=== PATIENT | female | born 1950 | race Asian ===

== ENCOUNTER → 2016-07-20 | Day surgery (SDC) | payer BC ==
[2016-07-20] VITALS (8 sets, daily range): BP systolic 134–157; BP diastolic 71–88
[~2016-07-20] VITALS: Ht 154.9 cm; Wt 72.6 kg
[~2016-07-20] MED LIST: ALLOPURINOL100 M1 ORAL; AMLODIPINE BESYL5 MG ORAL; ASPIRIN-LOW81 MG ORAL; BSS 15ml BTL ONE; BSS 500ml btl ONE; Bupivacaine 0.75% 30ml vial INJ ONE; Cyclopentolate 1% Opth Sol ONE; DIOVAN320 MG ORAL; Dexamethasone 4mg/ml vial ONE; DiphenhydrAMINE 50mg/ml Inj IVP PRN; EPINEPHrine 1mg/1ml Amp ONE; GABAPENTIN400 MG ORAL; Goniosol 2.5% Opth Soln - 15ml ONE; HUMALOG100 UNIT/1 SUBQ; Indocyanine Green 25mg Inj INJ ONE; KEPPRA500 M4 ORAL; Kenalog-10 5ml Inj ONE; Kenalog-40 1ml Vial ONE; LANTUS SOL100 UNIT/1 SUBQ; LIPITOR40 MG ORAL; LR 1000ml 1,000 ML IVLG SCH; LR 1000ml ONE; Lidocaine 2% MPF 5ml Vial INJ ONE; METFORMIN HCL1000 M1 ORAL; Maxitrol Opth Oint 3.5gm ONE; Midazolam 2mg/2ml Inj ONE; NS Irrig 1000ml ONE; Phenylephrine 2.5% Op Soln ONE; Povidone-Iodine 5% opth solution ONE; Pred Forte 1% Opth Susp 1ml ONE; Propofol 10mg/ml 20ml IV ONE; Sterile Water Irrig 1000ml IRRIG ONE; TOPROL XL25 MG ORAL; Tetracaine 0.5% Opth Soln ONE; Vancomycin 1gm inj IVPB ONE; fentaNYL 100 mcg/2 mL IV ONE; fentaNYL 100 mcg/2 mL IV PRN
[2016-07-20] MEDS: Cyclopentolate 1% Opth Sol LEFT EYE SCH ×3 (06:13→06:32)
[2016-07-20] MEDS: Phenylephrine 2.5% Op Soln LEFT EYE SCH ×3 (06:13→06:32)
--- NOTE | 2016-07-20 07:51 | Pre-Procedure Note/Attestation ---
Pre-Procedure Note/Attestation Complete Prior to Procedure Planned Procedure: left Procedure Narrative: ft os. b,a,r discussed Indications for Procedure Pre-Operative Diagnosis: vision loss OS Attestation I attest that I discussed the nature of the procedure; its benefits; risks and complications; and alternatives (and the risks and benefits of such alternatives ), prior to the procedure, with the patient (or the patient's legal wine sales representative). I attest that, if there was a reasonable possibility of needing a blood transfusion, the patient (or the patient's legal wine sales representative) was given the [facility] standardized written summary, pursuant to the Ari Carl Blood Safety Act ([place] Health and Safety Code # 1645, as amended). I attest that I re-evaluated the patient just prior to the surgery and that there has been no change in the patient's H&P, except as documented below: JESSICA JESSICA M.D. Jul 20, 2016 07:51
--- NOTE | 2016-07-20 08:25 | Anethesia Preoperative Eval ---
Anesthesia Pre-op PMH/ROS General Date of Evaluation: Jul 20, 2016 Time of Evaluation: 07:55 Anesthesiologist: Margarita ASA Score: ASA 3 Mallampati Score Class I : Soft palate, uvula, fauces, pillars visible Class II: Soft palate, uvula, fauces visible Class III: Soft palate, base of uvula visible Class IV: Only hard plate visible Mallampati Classification: Class III Surgeon: Ty Diagnosis: L eye diabetic retinopathy Surgical Procedure: L eye PPV membrane peel Anesthesia History: none Family History: no anesthesia problems Allergies: Coded Allergies: TRAMADOL (Verified Allergy, Unknown, 07/19/16) Medications: see eMAR Past Medical History Cardiovascular: Reports: HTN, arrhythmia - SA, Denies: CAD, NC, other, valve dz Pulmonary: Reports: RAYNE, Denies: COPD, asthma, other Gastrointestinal/Genitourinary: Reports: GERD, Denies: CRI, ESRD, other Neurologic/Psychiatric: Denies: CVA, TIA, dementia, depression/anxiety, other Endocrine: Reports: DM, Denies: hypothyroidism, other, steroids HEENT: Reports: cataract (L) - s/p Sx, Denies: [place] (L), [place] (R), cataract (R), glaucoma, other Hematology/Immune: Denies: DVT, anemia, bleeding disorder, other Musculoskeletal/Integumentary: Denies: DDD, DJD, OA, RA, edema, other Other: other - overweight PMH Narrative: as above PSxH Narrative: L eye cataract Craniotomy for brain tumor, cervical spine Sx. Anesthesia Pre-op Phys. Exam Physician Exam Last Vital Signs Date Time Temp Pulse Resp B/P Pulse Ox O2 Delivery O2 Flow Rate FiO2 07/20/16 06:42 97.7 52 20 139/73 98 Room Air Constitutional: NAD Neurologic: CN 2-12 intact Cardiovascular: RRR, no M/R/G Respiratory: CTA Gastrointestinal: S/NT/ND Airway Exam Mallampati Score: Class III MO: limited Neck: short ROM: limited Teeth: intact Dentures: no lower, no upper Anesthesia Pre-op A/P Labs see chart Accucheck 120 at admission Studies Pre-op Studies: EKG - SA Risk Assessment & Plan Assessment: ASA 3 Plan: MAC with retrobulbar block Status Change Before Surgery: No Pre-Antibiotics Drug: none JOANNA DONALDSON M.D. Jul 20, 2016 08:25
--- NOTE | 2016-07-20 09:08 | Immediate Post-Op Evaluation ---
Immediate Post-Op Evalulation Immediate Post-Op Evalulation Procedure: L eye PPV membrane peel fluid to gas exchange Date of Evaluation: Jul 20, 2016 Time of Evaluation: 09:07 IV Fluids: 200 Blood Products: none Estimated Blood Loss: min Urinary Output: none Blood Pressure Systolic: 147 Blood Pressure Diastolic: 68 Pulse Rate: 62 Respiratory Rate: 20 O2 Sat by Pulse Oximetry: 99 Temperature (Fahrenheit): 97.3 Pain Score (1-10): 1 Nausea: No Vomiting: No Complications none Patient Status: awake, patent, none Hydration Status: adequate JOANNA DONALDSON M.D. Jul 20, 2016 09:08
--- NOTE | 2016-07-20 09:10 | Operative Note - PDOC ---
Operative Note Operative Note Pre-op Diagnosis: vision loss OS Procedure: ppv/ilm peel/ afx/c3f8 os Post-op Diagnosis: macular hole os Post-op Diagnosis: same as pre-op Operative Findings: consistent w/pre-op dx studies Surgeon: araceli Masonry Teacher: none Anesthesia: local, MAC Specimen: none Complications: none Condition: stable Estimated Blood Loss: none Drains: none Implant(s) used?: No JESSICA JESSICA M.D. Jul 20, 2016 09:10
--- NOTE | 2016-07-20 09:19 | 48 Hour Post Anesthesia Eval ---
Post Anesthesia Evaluation Procedure: L eye PPV membrane peel fluid to gas exchange Date of Evaluation: Jul 20, 2016 Time of Evaluation: 09:18 Blood Pressure Systolic: 144 0: 72 Pulse Rate: 62 Respiratory Rate: 20 Temperature (Fahrenheit): 97.6 O2 Sat by Pulse Oximetry: 99 Airway: patent Nausea: No Vomiting: No Pain Intensity: 2 Hydration Status: adequate Cardiopulmonary Status: stable Mental Status/LOC: patient returned to baseline Follow-up Care/Observations: n/a Post-Anesthesia Complications: none Follow-up care needed: ready to discharge JOANNA DONALDSON M.D. Jul 20, 2016 09:19
--- NOTE | 2016-07-20 17:58 | Operative Note - Dictated ---
DATE OF OPERATION: 07/20/2016 PREOPERATIVE DIAGNOSIS: Macular hole, left eye. POSTOPERATIVE DIAGNOSIS: Macular hole, left eye. PROCEDURE: Pars plana vitrectomy, membrane peel, ILM peel, air fluid exchange, C3F8 gas left eye. PRIMARY SURGEON: Edil Crawford M.D. ORGANIZATIONAL CONSULTANT: None. ANESTHESIA: Monitored anesthesia care with retrobulbar injection. ESTIMATED BLOOD LOSS: None. COMPLICATIONS: None. INDICATIONS: The patient had a full thickness macular hole with vision loss in the left eye. After benefits, alternatives, and risks were discussed, an informed consent was signed. The patient specifically stated that she would be unable to perform face down positioning. I discussed with her that this may jeopardize the overall success rate of the procedure and that we would be using a long-acting gas to help mitigate these risks. The patient fully understood and is prepared to proceed. DESCRIPTION OF PROCEDURE: The patient was brought to the operating theatre and identified. The left eye received the retrobulbar block using the usual mixture of Marcaine and lidocaine under intervenous sedation with a retrobulbar needle. The left eye was then prepped and draped in the usual sterile fashion and a lid speculum was placed. Additional surgical pause was performed. A #23-gauge trocar/cannula was inserted in the inferotemporal quadrant at a distance of 3.5 mm posterior to limbus using conjunctival displacement in an oblique incision pattern. The infusion line was then attached to the cannula and observed to be in the posterior segment before being turned on. The supratemporal and supranasal cannulas were placed in a similar fashion. The Resight visualization system was brought into place and a light pipe and vitrectomy cutter were placed into the eye and appropriate focus obtained on the posterior pole where a macular hole was clearly visualized. Vitrectomy ensued in a systematic fashion starting with removal of core vitreous followed by peripheral vitreous shaving. Next, diluted ICG was placed on the posterior pole and allowed to remain for 20 seconds and was then washed out. Using a macular contact lens and a Danny oil heater installer, a small flap of ILM was lifted. Then using the ILM forceps, an ILM peel was performed. A 1-2 disk diameter margin around the macular hole was obtained. Next, using the Resight system, vitrectomy continued and any loose fragments were removed from the eye. A 360 degree scleral depressed exam was then performed and there was no evidence of retinal tears or detachment. Air fluid exchange was then performed and instruments removed from the eye. The supranasal cannula was removed and sclerotomy closed with 8-0 Vicryl. A 16% C3F8 gas was diluted and injected through the infusion line and allowed to escape through the supratemporal cannula, which had a vent. The remaining cannulas were removed and 8-0 Vicryl in a transconjunctival fashion was used to close the sclerotomy corresponding to the infusion lines, which appeared to be leaking. Conjunctival defect supranasal was then closed with 6-0 plain gut. Subconjunctival vancomycin and dexamethasone were then injected. Some additional gas was injected into the eye with a 30 gauge needle to bring the palpated pressure to approximately 15 to 20. The lid speculum and drape were removed. Ocular area cleaned. Atropine drop and Maxitrol ointment were placed on the ocular surface. A patch and shield were fixed over the closed lid with tape. The patient was taken to the recovery area in good spirits and in no pain. She was placed in the upright position with her chin tilted down. There were no complications. Edil Crawford M.D. DR: MADDIE JOB#: [id number] CC: MARY CARMEN
== END | disposition home or self-care (01) ==
LOC: SUR 05:46
DX: H35.342 Macular cyst, hole, or pseudohole, left eye (principal); E11.9 Type 2 diabetes mellitus without complications; Z79.4 Long term (current) use of insulin; Z79.84 Long term (current) use of oral hypoglycemic drugs; I10 Essential (primary) hypertension; M10.9 Gout, unspecified; E78.5 Hyperlipidemia, unspecified; E66.3 Overweight; Z68.31 Body mass index [BMI] 31.0-31.9, adult; I25.10 Atherosclerotic heart disease of native coronary artery without angina pectoris; R00.1 Bradycardia, unspecified; K57.30 Diverticulosis of large intestine without perforation or abscess without bleeding; M48.02 Spinal stenosis, cervical region; G47.33 Obstructive sleep apnea (adult) (pediatric); K21.9 Gastro-esophageal reflux disease without esophagitis; E73.9 Lactose intolerance, unspecified; D32.9 Benign neoplasm of meninges, unspecified; Z79.82 Long term (current) use of aspirin; Z88.6 Allergy status to analgesic agent
CPT/HCPCS: 67042; 82962; J0171; J1100; J2250; J2704; J3010; J3301; J3370; J3470; J3490; J7120; 94003; 94150